=== PATIENT | male | born 2005 | race Two or more races ===

== ENCOUNTER 2024-09-16 22:59 | Emergency (ER) | payer MEDICAID, SELFPAY ==
--- NOTE | 2024-09-16 23:01 | EKG_ITS ---
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
[2024-09-16 23:13] VITALS: BP 114/75; PULSE 165; RESP 26; O2SAT 98
--- NOTE | 2024-09-16 23:14 | PD.EDCHEST ---
ED Chest Pain RME/HPI General Chief Complaint: Chest Pain Stated Complaint: CHEST PAIN, L ARM PAIN Time Seen by Provider: 09/16/24 23:28 Arrival date/time: 09/16/24 22:59 Limitations: no limitations RME / HPI RME / HPI narrative: Dr. Lancaster's Main ED Evaluation: 18yo male with no significant past medical history presents to the ED for a chief complaint of chest pain x 2200. Patient reports associated shortness of breath and palpitations. Patient endorses using methamphetamines this morning. Patient denies any fever, chills, N/V or any other associated symptoms. Related Data Allergies Allergy/AdvReac Type Severity Reaction Status Date / Time No Known Allergies Allergy Verified 09/16/24 23:45 Review of Systems Review of Systems Systems Reviewed: All systems reviewed, normal except as documented ED Exam General Limitations: Present no limitations General appearance: Present alert and in no apparent distress Head Head exam: Present atraumatic Eye Eye exam: Present normal appearance, PERRL and EOMI ENT ENT exam: Present normal exam, normal oropharynx and mucous membranes moist Neck Neck exam: Present normal inspection, full ROM and trachea midline Chest Chest inspection: Present normal inspection and symmetric chest wall rise Respiratory Respiratory exam: Present normal lung sounds bilaterally Cardiovascular Cardiovascular exam: Present normal rhythm, tachycardia and normal heart sounds; Absent systolic murmur or diastolic murmur Abdominal Exam Abdominal exam: Present soft and normal bowel sounds Extremities Exam Extremities exam: Present normal inspection and full ROM Back Exam Back exam: Present normal inspection and full ROM Neurological Exam Neurological exam: Present alert, oriented X3 and CN II-XII intact Psychiatric Psychiatric exam: Present normal affect and normal mood Skin Skin exam: Present warm, dry, intact and normal color Course Quality Measures none Orders Category Date Time Status Meeting Manager STAT Care 09/16/24 23:39 Active Continuous Pulse Oximetry ONCE Care 09/16/24 23:39 Active EKG (ED ONLY) *Do not use* NOW Care 09/16/24 23:01 Completed Insert IV STAT Care 09/16/24 23:39 Active EKG (ED Only) Stat Exams 09/16/24 23:01 Draft XR chest 1V portable Stat Exams 09/16/24 23:39 Completed CBC Stat Lab 09/16/24 23:20 Completed Comprehensive Metabolic Panel Stat Lab 09/16/24 23:20 Completed Troponin I Stat Lab 09/16/24 23:20 Completed Diazepam Inj [Valium Inj] Med 09/16/24 23:40 Discontinued 5 mg IVP X1 ONE Sodium Chloride 0.9% 1000 ml [Ns] 1,000 ml Med 09/16/24 23:39 Discontinued IV 999 mls/hr Oxygen Delivery NOW RT 09/16/24 23:39 Active Vital Signs Vital signs: Vital Signs Pulse Rate 165 H 09/16/24 23:13 Respiratory Rate 26 H 09/16/24 23:13 Blood Pressure 114/75 09/16/24 23:13 Pulse Oximetry (%) 98 09/16/24 23:13 Oxygen Delivery Method Room Air 09/16/24 23:13 Chest Pain MDM Narrative MDM Narrative:: Scribe Attestation: 09/16/24 Lou Chapman am scribing for and in the presence of Dr. Lancaster. 18-year-old with sinus tachycardia status post crystal meth use today. Patient denies other drug use. No other toxidromes noted. Patient is also hyperventilating. Once blue bag was placed over his mouth he started to relax and his heart rate improved to 127. In the emergency department patient is given IV fluids, labs are pending. Patient data External records reviewed:: [facility] previous records (Per chart review, patient has no previous ED visits or admissions.) Clinical information provided by:: patient Social determinants that could affect healthcare access:: substance use (methamphetamine use) Patient has the following chronic illnesses:: none How is presenting disease/condition affected by chronic disease/condition?: no chronic disease Evaluation data The following diagnostics were reviewed and interpreted by me:: lab results, radiology exam(s) and EKG tracing(s) Lab and/or radiology exams considered but not ordered:: none Interpretation Summary: CBC normal, CMP normal, Troponin normal. EKG done at 2309, sinus tachycardia, rate of 154, normal intervals, normal axis, no ST elevations or depressions, according to my interpretation. [facility] Report Signed Patient: SIMI ENGLE. Record#: [id number] Birthdate: 2005 Age/Sex: 18 / M Location: [facility] Attending Dr: Ordering Physician: Bernice Mitchell MD Date of Service: 09/16/24 Procedure(s): XR chest 1V portable Accession Number(s): [id number] cc: Eduard Carrera MD; Bernice Mitchell MD~ Examination: AP chest single view TECHNIQUE: AP portable upright chest single view Date and time: September 16, 2024 1147 hours INDICATIONS: Chest pain today FINDINGS: Normal heart size Lungs are clear. The osseous structures are intact IMPRESSION: No active disease Dictated By: Eduard Carrera MD Signed By: <Electronically signed by Eduard Carrera MD in OV> 09/16/24 6989 Medications / Prescriptions Medications or Prescriptions considered but not ordered:: none Medication administrations:: Medication Administration History Discontinued Medications Diazepam (Diazepam Inj 5 Mg/Ml Vial 2 Ml) 5 mg IVP X1 ONE Stop: 09/16/24 23:41 Last Admin: 09/16/24 23:53 Dose: 5 mg Documented By: LEYLA Sodium Chloride (Ns) 1,000 mls @ 999 mls/hr IV .Q1H1M ONE Stop: 09/17/24 00:39 Last Admin: 09/16/24 23:53 Dose: 999 mls/hr Documented By: LEYLA see above Consultations Consultation(s) initiated? (list below): No Diagnosis Chest Pain Differential Diagnosis: other (overdose, amphetamine use, SVT) Most likely diagnosis given after review of the tests above:: see clinical impression below Admission Indicated Admission indicated?: not indicated Admission Request Was there a request for admission?: No Disposition Plan Disposition Plan: Discharge Discharge Attestation Discharge Attestation: The patient and all family members were given an opportunity to ask questions and understood the discharge instructions. Discharge instructions specifically effects, indications for sooner follow up or return to the emergency department, and the expected course of current diagnosis. Patient condition: Stable Discharge Plan Plan Patient Disposition: HOME (Self Care) Patient condition on transfer: Stable Problem List Clinical Impression: Current drug use, Tachycardia Patient/Caregiver Discharge Instructions Education Materials: ED About Arrhythmias Additional Instructions: Please avoid drugs to protect your heart and not have your heart rate go fast elevated. Return to emergency department for any worsening symptoms, or any other concerns. Follow-up with your primary care physician. In the next 2 to 3 days Print Language: Romanian Stand Alone Forms: Gerda Award Info., Patient Portal Info Letter
[2024-09-16 23:17] VITALS: BP 131/96; PULSE 118; RESP 20; O2SAT 97
[2024-09-16 23:39] VITALS: PULSE 118; RESP 100; RESP 20
--- NOTE | 2024-09-16 23:39 | XR_ITS ---
Examination: AP chest single view TECHNIQUE: AP portable upright chest single view Date and time: September 16, 2024 1147 hours INDICATIONS: Chest pain today FINDINGS: Normal heart size Lungs are clear. The osseous structures are intact IMPRESSION: No active disease
[2024-09-16] MEDS: DIAZEPAM INJ 5 MG/ML VIAL 2 ML IVP (23:53)
[2024-09-16] MEDS: SODIUM CHLORIDE 0.9% 1000 ML 1,000 ML 999 ML IV (23:53)
[2024-09-17 00:09] VITALS: BP 111/76; PULSE 106; RESP 26; TEMP 36.6; O2SAT 96
[2024-09-17 00:31] LABS: Basophils # (Auto) 0.1 Thou/mm3 (0.0-0.2); Basophils % (Auto) 1 % (0-2.5); Eosinophils # (Auto) 0.2 Thou/mm3 (0.0-0.5); Eosinophils % (Auto) 2 % (0-10); Hematocrit 44.2 % (41.0-53.0); Hemoglobin 16.0 g/dL (13.5-16.0); Immature Granulocytes Auto 0.03 Thou/mm3 (0.00-0.00); Lymphocytes # (Auto) 3.6 Thou/mm3 (1.0-5.0); Lymphocytes % (Auto) 37 % (10-50); Mean Corpuscular HGB Conc 36.2 g/dl (31.0-37.0); Mean Corpuscular Hemoglobin 29.9 pg (25.0-35.0); Mean Corpuscular Volume 83 fL (80-100); Monocytes # (Auto) 0.8 Thou/mm3 (0.0-0.8); Monocytes % (Auto) 8 % (0-12); Neutrophils # (Auto) 5.0 Thou/mm3 (1.8-7.7); Neutrophils % (Auto) 53 % (37-80); Nucleated Red Blood Cell # 0.00 Thou/mm3 (0.00-0.00); Nucleated Red Blood Cell % 0 /100 WBC (0); Platelet Count 385 Thou/mm3 (140-440); RDW Standard Deviation 35.6 fL (35.1-43.9); Red Blood Count 5.35 Miln/mm3 (4.50-5.90); White Blood Count 9.6 Thou/mm3 (4.5-11.0)
[2024-09-17 00:49] LABS: Alanine Aminotransferase 17 U/L (10-49); Albumin, Serum 4.9 gm/dL (3.5-5.0); Albumin/Globulin Ratio 1.6 (1.2-2.2); Alkaline Phosphatase 128 U/L (46-116); Anion Gap 13 (7-16); Aspartate Amino Transferase 33 U/L (0-34); BUN/Creatinine Ratio 22 Ratio (12-20); Bilirubin,Total 0.7 mg/dL (0.3-1.2); Blood Urea Nitrogen 22 mg/dL (9-23); Calcium 9.9 mg/dL (8.3-10.6); Calcium (Corrected) 9.9 mg/dL (8.5-10.1); Carbon Dioxide 21.2 mMol/L (20.0-31.0); Chloride 105 mMol/L (98-107); Creatinine (Component) 1.0 mg/dL (0.6-1.3); Globulin 3.0 gm/dL (2.3-3.5); Glucose 141 mg/dL (74-106); Osmolality,Calculated 282 (275-295); Potassium 3.4 mMol/L (3.4-5.1); Sodium 139 mMol/L (136-145); Total Protein 7.9 gm/dL (5.7-8.2); Troponin I < 0.002 ng/mL (0.0-0.045); eGFR > 60 See Note
[2024-09-17 02:00] VITALS: BP 104/58; PULSE 78; RESP 16; TEMP 36.7; O2SAT 98
== END 2024-09-17 02:15 | disposition home or self-care (01) ==
PROVIDERS: Emergency Provider Emergency Medicine
DX: F15.90 Other stimulant use, unspecified, uncomplicated (principal); R07.9 Chest pain, unspecified; R00.0 Tachycardia, unspecified
CPT/HCPCS: 36415; 71045; 80053; 84484; 85025; 93005; 96374; 99283; J3360; J7030

== ENCOUNTER 2024-12-24 01:53 | Emergency (ER) | payer SELFPAY ==
[2024-12-24 01:53] VITALS: BP 132/88; PULSE 116; RESP 18; TEMP 37; O2SAT 98
--- NOTE | 2024-12-24 01:56 | EKG_ITS ---
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
--- NOTE | 2024-12-24 02:13 | PD.EDRME ---
Rapid Medical Screening Exam RME Arrival date/time: 12/24/24 01:53 Chief Complaint: Arrhythmia/Palpitations Vital signs: Vital Signs Temperature 98.6 F 12/24/24 01:53 Pulse Rate 116 H 12/24/24 01:53 Respiratory Rate 18 12/24/24 01:53 Blood Pressure 132/88 H 12/24/24 01:53 Pulse Oximetry (%) 98 12/24/24 01:53 Oxygen Delivery Method Room Air 12/24/24 01:53 RME Narrative: Palpitations since 1800 last night. Denies drug and alcohol use Exam: Well-appearing, no acute distress. Mild tachycardia Clinical Impression: Palpitations
[2024-12-24 02:49] LABS: Basophils # (Auto) 0.1 Thou/mm3 (0.0-0.2); Basophils % (Auto) 1 % (0-2.5); Eosinophils # (Auto) 0.0 Thou/mm3 (0.0-0.5); Eosinophils % (Auto) 0 % (0-10); Hematocrit 41.1 % (41.0-53.0); Hemoglobin 14.5 g/dL (13.5-16.0); Immature Granulocytes Auto 0.02 Thou/mm3 (0.00-0.00); Lymphocytes # (Auto) 2.9 Thou/mm3 (1.0-4.8); Lymphocytes % (Auto) 26 % (10-50); Mean Corpuscular HGB Conc 35.3 g/dl (31.0-37.0); Mean Corpuscular Hemoglobin 29.8 pg (25.0-35.0); Mean Corpuscular Volume 85 fL (80-100); Monocytes # (Auto) 0.7 Thou/mm3 (0.0-0.8); Monocytes % (Auto) 6 % (0-12); Neutrophils # (Auto) 7.3 Thou/mm3 (1.8-7.7); Neutrophils % (Auto) 66 % (37-80); Nucleated Red Blood Cell # 0.00 Thou/mm3 (0.00-0.00); Nucleated Red Blood Cell % 0 /100 WBC (0); Platelet Count 346 Thou/mm3 (140-440); RDW Standard Deviation 38.0 fL (35.1-43.9); Red Blood Count 4.86 Miln/mm3 (4.50-5.90); White Blood Count 11.0 Thou/mm3 (4.5-11.0)
[2024-12-24 03:13] LABS: Alanine Aminotransferase 15 U/L (10-49); Albumin, Serum 5.2 gm/dL (3.5-5.0); Albumin/Globulin Ratio 2.2 (1.2-2.2); Alcohol, Blood Medical < 3.0 mg/dL (0-10.0); Alkaline Phosphatase 94 U/L (46-116); Anion Gap 11 (7-16); Aspartate Amino Transferase 33 U/L (0-34); BUN/Creatinine Ratio 12 Ratio (12-20); Bilirubin,Total 0.7 mg/dL (0.3-1.2); Blood Urea Nitrogen 13 mg/dL (9-23); Calcium 9.7 mg/dL (8.3-10.6); Calcium (Corrected) 9.7 mg/dL (8.5-10.1); Carbon Dioxide 26.3 mMol/L (20.0-31.0); Chloride 104 mMol/L (98-107); Creatinine (Component) 1.1 mg/dL (0.6-1.3); Free T4 (Free Thyroxine) 1.27 ng/dL (0.89-1.76); Globulin 2.4 gm/dL (2.3-3.5); Glucose 106 mg/dL (74-106); Magnesium 2.1 mg/dL (1.6-2.6); Osmolality,Calculated 281 (275-295); Potassium 3.5 mMol/L (3.4-5.1); Sodium 141 mMol/L (136-145); Thyroid Stimulating Hormone 2.80 uIU/mL (0.55-4.78); Total Protein 7.6 gm/dL (5.7-8.2); Troponin I < 0.002 ng/mL (0.0-0.045); eGFR > 60 See Note
[2024-12-24 03:15] LABS: Amphetamine/Methamp Scrn,U Positive (Negative); Barbiturate Screen,Urine Negative (Negative); Benzodiazepines Screen,Urine Negative (Negative); Benzoylecgonine Screen, Ur Negative (Negative); Fentanyl Screen,Urine Negative (Negative); Opiate Screen,Urine Negative (Negative); THC Screen,Urine Negative (Negative)
--- NOTE | 2024-12-24 03:21 | EDNOTE_ITS ---
ED Arrhythmia Palp. RME/HPI General Chief Complaint: Arrhythmia/Palpitations Stated Complaint: PALPITATIONS Time Seen by Provider: 12/24/24 03:20 Source: patient, family, RN notes reviewed and old records reviewed Arrival date/time: 12/24/24 01:53 Mode of arrival: ambulatory Limitations: no limitations RME / HPI RME / HPI narrative: 19yom presents to ED with father for heart palpitations since yesterday afternoon. Patient states he can see blood vessel in right hand pulsating. History of meth use. No shortness of breath, chest pain, nausea/vomiting, dizziness or syncope reported. No medications or treatment since symptom onset. Related Data Allergies Allergy/AdvReac Type Severity Reaction Status Date / Time No Known Allergies Allergy Verified 12/24/24 01:54 Review of Systems Review of Systems Systems Reviewed: All systems reviewed, normal except as documented ENT Ears, Nose, Mouth, and Throat: Denies dizziness Cardiovascular Cardiovascular: Denies chest pain, Denies dyspnea, Reports palpitations and Denies syncope Respiratory Respiratory: Denies dyspnea Gastrointestinal Gastrointestinal: Denies nausea and Denies vomiting Neurologic Neurologic: Denies dizziness and Denies syncope Endocrine Endocrine: Reports palpitations Past Medical History Surgical History OTHER SURGICAL HX: denies pshx Social History SMOKING STATUS: Never smoker SUBSTANCE USE: methamphetamine ALCOHOL: Never Past Medical History Comments PMH COMMENT: denies pmhx ED Exam General Limitations: Present no limitations General appearance: Present alert and in no apparent distress Head Head exam: Present atraumatic and normocephalic Eye Eye exam: Present normal appearance, PERRL and EOMI ENT ENT exam: Present normal exam and mucous membranes moist Neck Neck exam: Present normal inspection and full ROM Chest Chest inspection: Present normal inspection and symmetric chest wall rise Respiratory Respiratory exam: Present normal lung sounds bilaterally; Absent respiratory distress Cardiovascular Cardiovascular exam: Present normal rhythm and tachycardia Neurological Exam Neurological exam: Present alert and oriented X3 Psychiatric Psychiatric exam: Present normal affect and normal mood Skin Skin exam: Present warm, dry, intact and normal color Course Quality Measures none Orders Category Date Time Status EKG (ED ONLY) *Do not use* NOW Care 12/24/24 01:56 Completed EKG (ED Only) Stat Exams 12/24/24 01:56 Draft Alcohol, Blood Medical Stat Lab 12/24/24 02:36 Completed CBC Stat Lab 12/24/24 02:36 Completed CMP [Comprehensive Metabolic Panel] Stat Lab 12/24/24 02:36 Completed Drug Screen,Urine Stat Lab 12/24/24 02:58 Completed Free T4 (Free Thyroxine) Stat Lab 12/24/24 02:36 Completed Magnesium Stat Lab 12/24/24 02:36 Completed TSH [Thyroid Stimulating Hormone] Stat Lab 12/24/24 02:36 Completed Troponin I Stat Lab 12/24/24 02:36 Completed Vital Signs Vital signs: Vital Signs Temperature 98.6 F 12/24/24 01:53 Pulse Rate 116 H 12/24/24 01:53 Respiratory Rate 18 12/24/24 01:53 Blood Pressure 132/88 H 12/24/24 01:53 Pulse Oximetry (%) 98 12/24/24 01:53 Oxygen Delivery Method Room Air 12/24/24 01:53 PROCEDURES: EKG Interpretation #1: Date of EK12/24/24 Time of EK:04 Rate: 120 Interpretation: Interpreted by me Additional EKG comment: Sinus tachy No stemi Borderline right axis deviation Arrhythmia/Palpitations MDM Narrative MDM Narrative:: 19yom presents to ED with father for heart palpitations since yesterday afternoon. Patient states he can see blood vessel in right hand pulsating. History of meth use. No shortness of breath, chest pain, nausea/vomiting, dizziness or syncope reported. No medications or treatment since symptom onset. UDS positive for meth. Strongly encouraged cessation of drug use as this is most probable cause of symptoms. Stable for discharge, RTED precautions given. Patient data External records reviewed:: [facility] previous records (09/16/2024 ED visit for drug use) Clinical information provided by:: patient Social determinants that could affect healthcare access:: substance use Patient has the following chronic illnesses:: None How is presenting disease/condition affected by chronic disease/condition?: no chronic disease Evaluation data The following diagnostics were reviewed and interpreted by me:: lab results and EKG tracing(s) Lab and/or radiology exams considered but not ordered:: None Interpretation Summary: UDS positive for methamphetamines Negative Troponin Normal thyroid No electrolyte abnormality Medications / Prescriptions Medications or Prescriptions considered but not ordered:: None Medication administrations:: None Consultations Consultation(s) initiated? (list below): No Diagnosis Differential diagnosis arrhythmia/palpitations: palpitations, anxiety, artial fibrillation, supraventricular tachycardia and other (Drug use, alcohol use) Most likely diagnosis given after review of the tests above:: Palpitations, methamphetamine use Admission Indicated Admission indicated?: not indicated Admission Request Was there a request for admission?: No Disposition Plan Disposition Plan: Discharge Discharge Attestation Discharge Attestation: The patient and all family members were given an opportunity to ask questions and understood the discharge instructions. Discharge instructions specifically effects, indications for sooner follow up or return to the emergency department, and the expected course of current diagnosis. Patient condition: Stable Discharge Plan Plan Patient Disposition: HOME (Self Care) Patient condition on transfer: Stable Problem List Clinical Impression: Methamphetamine use, Palpitations Patient/Caregiver Discharge Instructions Education Materials: Understanding Methamphetamine ... Additional Instructions: Stop using drugs. Methamphetamines make your heart beat fast causing palpitations. Print Language: Guatemalan Stand Alone Forms: Gerda Award Info., Patient Portal Info Letter PA/DOROTEO Supervising Physician PROSPER/DOROTEO Supervising Physician: [place]
== END 2024-12-24 03:29 | disposition home or self-care (01) ==
LOC: SERX 04:58
PROVIDERS: Physician Assistant; Emergency Provider Emergency Medicine
DX: R00.2 Palpitations (principal); F15.90 Other stimulant use, unspecified, uncomplicated
CPT/HCPCS: 36415; 80053; 80307; 80320; 83735; 84439; 84443; 84484; 85025; 93005; 99282; G0480